=== PATIENT | female | born 1965 | race Caucasian/White ===

== ENCOUNTER 2016-12-03 16:59 | Emergency (ER) | payer MEDICAID, OTHER ==
[~2016-12-03] VITALS: Ht 152.4 cm; Wt 59.0 kg
[~2016-12-03 16:59] MED LIST: DIPH25TA55 PO; MECL25TA2 PO
[2016-12-03 17:06] VITALS: Ht 152.4 cm; Wt 59.0 kg
--- NOTE | 2016-12-03 18:39 | ERA ---
ER Documentation Chief Complaint Date/Time DATE: 12/03/16 TIME: 18:38 Chief Complaint ANXIETY, MOUTH NUMBNESS, CHEST PAIN, DIZZINESS, "STRESSED OUT" HPI Patient is presented with a chief complaint of fatigue and weakness. Patient states that she feels like she is overworked. Patient is also chest pain, and complaining of numbness and weakness in the hands and feet bilaterally. Patient 's symptoms have happened one time before and have spontaneously resolved. ROS All systems reviewed and are negative except as per history of present illness. Medications Home Meds Reported Medications Meclizine Hcl* (Antivert*) 25 Mg Tablet, PO Q8 01/03/12 Diphenhydramine Hcl (Allergy) 25 Mg Tablet, PO DAILY 01/03/12 Allergies Allergies: Coded Allergies: No Known Allergy (Unverified , 03/12/12) PMhx/Soc History of Surgery: No Anesthesia Reaction: No Hx Neurological Disorder: No Hx Respiratory Disorders: No Hx Cardiac Disorders: No Hx Psychiatric Problems: Yes (depression) Hx Miscellaneous Medical Probl: No Hx Alcohol Use: No Hx Substance Use: No Hx Tobacco Use: No Physical Exam Vitals Vital Signs Date Time Temp Pulse Resp B/P Pulse Ox O2 Delivery O2 Flow Rate FiO2 12/03/16 17:06 98.7 71 18 153/85 99 Physical Exam Const: [] Head: Atraumatic Eyes: Normal Conjunctiva ENT: Normal External Ears, Nose and Mouth. Neck: Full range of motion..~ No meningismus. Resp: Clear to auscultation bilaterally Cardio: Regular rate and rhythm, no murmurs Abd: Soft, non tender, non distended. Normal bowel sounds Skin: No petechiae or rashes Back: No midline or flank tenderness Ext: No cyanosis, or edema Neur: Awake and alert Psych: Normal Mood and Affect Result Diagram: 12/03/16190912/03/161909 Results 24 hrs Laboratory Tests Test 12/03/16 19:10 White Blood Count 5.410^3/ul Red Blood Count 4.3410^6/ul Hemoglobin 14.2g/dl Hematocrit 41.1% Mean Corpuscular Volume 94.7fl Mean Corpuscular Hemoglobin 32.7pg Mean Corpuscular Hemoglobin Concent 34.5g/dl Red Cell Distribution Width 12.5% Platelet Count 30874^3/UL Mean Platelet Volume 10.4fl Neutrophils % 54.6% Lymphocytes % 35.7% Monocytes % 7.9% Eosinophils % 0.9% Basophils % 0.9% Nucleated Red Blood Cells % 0.0/100WBC Neutrophils # 3.010^3/ul Lymphocytes # 1.910^3/ul Monocytes # 0.410^3/ul Eosinophils # 0.110^3/ul Basophils # 0.110^3/ul Nucleated Red Blood Cells # 0.010^3/ul Sodium Level 134mmol/L Potassium Level 4.0mmol/L Chloride Level 98mmol/L Carbon Dioxide Level 26mmol/L Anion Gap 14 Blood Urea Nitrogen 13mg/dl Creatinine 0.56mg/dl Glucose Level 103mg/dl Calcium Level 9.9mg/dl Procedures/MDM 51-year-old female presenting with chief complaints of generalized weakness and numbness and tingling in the distal extremities in a stocking glove distribution. Differential diagnosis at this time includes but is not limited to the following: Alcoholism, toxicities, Esther, anemia, infectious causes, cardiac causes, among others. Patient received an EKG to rule out any cardiac causes. I read the EKG as sinus bradycardia, no T-wave abnormalities, no ST wave changes, QRS within normal limits, and good baseline with normal axis. My attending Dr. Biswas read the EKG as sinus tachycardia and otherwise normal. Patient received CBC and BMP and . Patient's labs were unremarkable and test negative. Patient's most likely diagnosis is anxiety versus panic attack episode. At this time a very low suspicion for the patient to hurt herself or others. Patient has her sister here in the ED and is not driving home. Patient will be discharged with discharge instructions and return precautions. Departure Diagnosis: Primary Impression: Anxiety attack Additional Impression: Numbness Condition: Stable Additional Instructions: Follow up with your PCP within the next 1-3 days for a more thorough evaluation and a possible referral to a specialist. Return the the emergency department immediately if symptoms worsen or change. If you have any questions regarding medications, ask your pharmacist or us before you leave. If any adverse reactions occur while taking your medications, discontinue the treatment and return to the emergency department immediately. Take your medications as directed, and complete the entire course of treatment. JAMES ROACH PA-C Dec 03, 2016 18:39
[2016-12-03 19:28] LABS: ADD SCAN DIFF NO
[2016-12-03 19:30] LABS: BASOPHIL # 0.1 10^3/ul (0.0-0.1); BASOPHILS % 0.9 % (0.0-2.0); EOSINOPHILS # 0.1 10^3/ul (0.0-0.5); EOSINOPHILS % 0.9 % (0.0-7.0); HEMATOCRIT 41.1 % (37.0-47.0); HEMOGLOBIN 14.2 g/dl (12.0-16.0); LYMPHOCYTES # 1.9 10^3/ul (0.8-2.9); LYMPHOCYTES % 35.7 % (15.0-51.0); MEAN CORPUSCULAR HEMOGLOBIN 32.7 pg (29.0-33.0); MEAN CORPUSCULAR HGB CONC 34.5 g/dl (32.0-37.0); MEAN CORPUSCULAR VOLUME 94.7 fl (82.0-101.0); MEAN PLATELET VOLUME 10.4 fl (7.4-10.4); MONOCYTE # 0.4 10^3/ul (0.3-0.9); MONOCYTES % 7.9 % (0.0-11.0); NEUTROPHILS % 54.6 % (39.0-77.0); PLATELET COUNT 240 10^3/UL (140-415); RED BLOOD COUNT 4.34 10^6/ul (4.20-5.40); RED CELL DISTRIBUTION WIDTH 12.5 % (11.5-14.5); WHITE BLOOD COUNT 5.4 10^3/ul (4.8-10.8)
[2016-12-03 19:48] LABS: CALCIUM 9.9 mg/dl (8.4-10.2); CREATININE 0.56 mg/dl (0.44-1.00)
== END 2016-12-03 20:38 | disposition home or self-care (01) ==
LOC: FTE 16:59
DX: F41.9 Anxiety disorder, unspecified (principal); R20.0 Anesthesia of skin; R42 Dizziness and giddiness
CPT/HCPCS: 80048; 85025; 93005; Z7502

== ENCOUNTER 2017-03-15 21:52 | Emergency (ER) | payer MEDICAID, OTHER ==
[~2017-03-15] VITALS: Ht 157.5 cm; Wt 59.0 kg
[2017-03-15 22:00] VITALS: Ht 157.5 cm; Wt 59.0 kg
[2017-03-15] MEDS ORDERED: SOD CHLORIDE 0.9% 1,000 ML IV STA (22:37)
[2017-03-15] MEDS ORDERED: ONDANSETRON 4 MG INJ IV STA (22:37)
[2017-03-15] MEDS ORDERED: MECLIZINE 12.5 MG TAB PO ONE (23:00)
[2017-03-15 23:10] LABS: BASOPHILS % 0.7 % (0.0-2.0); EOSINOPHILS # 0.1 10^3/ul (0.0-0.5); EOSINOPHILS % 1.1 % (0.0-7.0); HEMATOCRIT 38.3 % (37.0-47.0); HEMOGLOBIN 13.8 g/dl (12.0-16.0); LYMPHOCYTES # 1.7 10^3/ul (0.8-2.9); LYMPHOCYTES % 30.3 % (15.0-51.0); MEAN CORPUSCULAR VOLUME 91.6 fl (82.0-101.0); MEAN PLATELET VOLUME 10.3 fl (7.4-10.4); MONOCYTE # 0.4 10^3/ul (0.3-0.9); MONOCYTES % 7.6 % (0.0-11.0); NEUTROPHIL # 3.4 10^3/ul (1.6-7.5); NEUTROPHILS % 60.1 % (39.0-77.0); PLATELET COUNT 247 10^3/UL (140-415); RED BLOOD COUNT 4.18 10^6/ul (4.20-5.40); RED CELL DISTRIBUTION WIDTH 12.1 % (11.5-14.5); WHITE BLOOD COUNT 5.7 10^3/ul (4.8-10.8)
[2017-03-15 23:31] LABS: ANION GAP 10 (8-16); BLOOD UREA NITROGEN 20 mg/dl (7-20); CALCIUM 9.8 mg/dl (8.4-10.2); CARBON DIOXIDE 26 mmol/L (21-31); CHLORIDE 100 mmol/L (97-110); CREATININE 0.59 mg/dl (0.44-1.00); GLUCOSE 144 mg/dl (70-220); POTASSIUM 3.3 mmol/L (3.5-5.1); SODIUM 133 mmol/L (135-144)
[2017-03-15 23:47] LABS: TROPONIN-I < 0.012 ng/ml (0.00-0.12)
--- NOTE | 2017-03-16 | ERD ---
ER Documentation Chief Complaint Date/Time DATE: 03/15/17 TIME: 23:59 Chief Complaint dizziness 1 hour ago, nauseated HPI Patient is a 51-year-old female who states she feels dizzy and nauseated for the past hour. She states she feels like the room is spinning and is worse when he moves her head. Denies any pain. Denies any chest pain or shortness of breath. She is not diabetic. She has nausea but no vomiting. No trauma. No headache. She no longer gets her period. She denies any dysuria hematuria or increased urinary frequency. She has not taken any medications for this. ROS All systems reviewed and are negative except as per history of present illness. Medications Home Meds Reported Medications Meclizine Hcl* (Antivert*) 25 Mg Tablet, PO Q8 01/03/12 Diphenhydramine Hcl (Allergy) 25 Mg Tablet, PO DAILY 01/03/12 Allergies Allergies: Coded Allergies: No Known Allergy (Unverified , 03/12/12) PMhx/Soc History of Surgery: Yes (CHOLECYSTECTOMY) Anesthesia Reaction: No Hx Neurological Disorder: No Hx Respiratory Disorders: No Hx Cardiac Disorders: No Hx Psychiatric Problems: Yes (DEPRESSION) Hx Miscellaneous Medical Probl: No Hx Alcohol Use: No Hx Substance Use: No Hx Tobacco Use: No Smoking Status: Never smoker FmHx Family History: No diabetes Physical Exam Vitals Vital Signs Date Time Temp Pulse Resp B/P Pulse Ox O2 Delivery O2 Flow Rate FiO2 03/15/17 22:00 98.2 60 20 146/74 100 Physical Exam INITIAL VITAL SIGNS: Reviewed by me GENERAL: Awake, alert and oriented x 4, well appearing, nontoxic, speaking in full sentences. No acute distress HEAD: Atraumatic NECK: Supple. No masses. Full range of motion. No meningismus. No midline tenderness. EYES: EOMI. PERRL. EAR: No tenderness over the mastoids bilaterally. No exudates in the canals. TMs nonerythematous. RESPIRATORY: Clear to auscultation bilaterally. Symmetric chest wall rise. No wheezing or rales. No accessory muscle use. CV: Regular rate and rhythm. No murmurs, rubs, or gallops. ABDOMEN: Soft, non-distended. Nontender. Negative Fleming. Negative McBurneys point tenderness. No CVA tenderness bilaterally. No guarding. No rebound. : Deffered. EXTREMITIES: No clubbing or cyanosis. No edema. Moving all extremities normally. NEUROLOGIC: Normal mental status and speech. Face is symmetric. Moves all extremities equally. Motor and sensory distally intact. Normal coordination. Ambulates with a strong steady gait. Result Diagram: 03/15/17 2300 03/15/17 2300 Results 24 hrs Laboratory Tests Test 03/15/17 23:00 White Blood Count 5.710^3/ul Red Blood Count 4.1810^6/ul Hemoglobin 13.8g/dl Hematocrit 38.3% Mean Corpuscular Volume 91.6fl Mean Corpuscular Hemoglobin 33.0pg Mean Corpuscular Hemoglobin Concent 36.0g/dl Red Cell Distribution Width 12.1% Platelet Count 57970^3/UL Mean Platelet Volume 10.3fl Neutrophils % 60.1% Lymphocytes % 30.3% Monocytes % 7.6% Eosinophils % 1.1% Basophils % 0.7% Nucleated Red Blood Cells % 0.0/100WBC Neutrophils # 3.410^3/ul Lymphocytes # 1.710^3/ul Monocytes # 0.410^3/ul Eosinophils # 0.110^3/ul Basophils # 0.010^3/ul Nucleated Red Blood Cells # 0.010^3/ul Sodium Level 133mmol/L Potassium Level 3.3mmol/L Chloride Level 100mmol/L Carbon Dioxide Level 26mmol/L Anion Gap 10 Blood Urea Nitrogen 20mg/dl Creatinine 0.59mg/dl Glucose Level 144mg/dl Calcium Level 9.8mg/dl Troponin I < 0.012ng/ml Current Medications Medications (Trade) Dose Ordered Sig/Latrice Route PRN Reason Start Time Stop Time Status Last Admin Dose Admin Sodium Chloride (NS) 1,000 ml @ 1,000 mls/hr Q1H STAT IV 03/15/17 22:37 03/15/17 23:36 DC 03/15/17 22:48 Ondansetron HCl (Zofran Inj) 4 mg ONCE STAT IV 03/15/17 22:37 03/15/17 22:39 DC 03/15/17 22:47 Meclizine HCl (Antivert) 50 mg ONCE ONCE PO 03/15/17 23:00 03/15/17 23:01 DC 03/15/17 22:46 Procedures/MDM 51-year-old female presents with dizziness that she describes as the room spinning. It is worse when she changes position of her head. Her blood pressure is mildly elevated 146/74 otherwise her vital signs are within normal limits. She is well-appearing and her neurological examination is normal. EKG was sinus bradycardia with a rate of 55 otherwise unremarkable. No evidence of ST elevation or acute ischemic changes. Her labs including troponin were also negative. She was given IV fluids, Zofran and meclizine with improvement of her symptoms and she is discharged with Zofran and meclizine. Patient counseled regarding my diagnostic impression and care plan. Prior to discharge all questions answered. Pt agrees with treatment plan and understands strict return precautions. Pt is instructed to follow up with primary care provider within 24-48 hours. Precautionary instructions provided including instructions to return to the ER if not improving or for any worsening or changing symptoms or concerns. Departure Diagnosis: Primary Impression: Dizziness Condition: Stable ALMA ALEJANDRE PA-C Mar 16, 2017 00:00
[2017-03-16] MEDS ORDERED: MECL-77 PO (00:01)
[2017-03-16] MEDS ORDERED: ONDA4TAB14 PO (00:01)
[2017-03-16 00:30] VITALS: BP 110/71; PULSE 56; RESP 18; TEMP 97.6
[2017-03-16] MEDS ORDERED: KETOROLAC 30 MG INJ IV STA (00:37)
== END 2017-03-16 00:50 | disposition home or self-care (01) ==
LOC: FTE 21:52
DX: R42 Dizziness and giddiness (principal); R11.0 Nausea
CPT/HCPCS: 36415; 80048; 84484; 85025; 93005; 96361; 96374; 96375; J1885; J2405; J7030; Z7502; Z7610